=== PATIENT | male | born 1965 | race Caucasian/White ===

== ENCOUNTER 2022-09-13 15:07 | Emergency (ER) | payer MEDICAID, MEDICARE ==
[2022-09-13] MEDS ORDERED: Gadobenate Dimeglumine 529 MG/ML 20 ML SDV IVPUSH ONE (15:54)
[2022-09-13] MEDS ORDERED: Sodium Chloride 0.9% 10 ML Syringe FLUSH SCH (16:00)
== END 2022-09-13 18:42 | disposition home or self-care (01) ==
LOC: JD.ED 15:07
DX: R41.82 Altered mental status, unspecified (principal)
CPT/HCPCS: 36415; 70450; 70552; 80053; 80307; 84484; 85025; 85379; 85610; 85730; 93005; 99285; A9577; J3490